=== PATIENT | female | born 1960 ===

== ENCOUNTER 2017-11-03 08:53 | Outpatient (CLI) | payer BC, OTHER | END 2017-11-03 08:54 | disposition home or self-care (01) | LOC: BICMAMMO 08:53 | PROVIDERS: ATTEND Specialist | DX: N60.09 Solitary cyst of unspecified breast (principal); R92.2 Inconclusive mammogram | CPT/HCPCS: 77063 ==

== ENCOUNTER 2018-11-25 07:44 | Outpatient (CLI) | payer OTHER, BC | END 2018-11-25 07:45 | disposition home or self-care (01) | LOC: BICMAMMO 07:44 | PROVIDERS: ATTEND Obstetrics & Gynecology | DX: Z12.31 Encounter for screening mammogram for malignant neoplasm of breast (principal); Z80.3 Family history of malignant neoplasm of breast | CPT/HCPCS: 77063; 77067 ==